=== PATIENT | male | born 1975 | race Caucasian/White ===

== ENCOUNTER 2024-02-03 16:45 | Inpatient (IN) | payer OTHER ==
[2024-02-03 17:31] VITALS: BMI 32.0
[2024-02-03] MEDS ORDERED: DICYCLOMINE HCL 10 MG CAPSULE PO PRN (17:50)
[2024-02-03] MEDS ORDERED: BENZOCAINE/MENTHOL (CHLORASEPTIC ) LOZENGE MM PRN (17:50)
[2024-02-03] MEDS ORDERED: MAG HYDROX/AL HYDROX/SIMETH 30 ML UNIT-DOSE CUP PO PRN (17:50)
[2024-02-03] MEDS ORDERED: BENZONATATE 200 MG CAPSULE PO PRN (17:50)
[2024-02-03] MEDS ORDERED: BISMUTH SUBSALICYLATE 524 MG/30 ML PO PRN (17:50)
[2024-02-03] MEDS ORDERED: ONDANSETRON *ODT* 4 MG TABLET SL PRN (17:50)
[2024-02-03] MEDS ORDERED: guaiFENesin 600 MG TABLET.ER (FP) PO PRN (17:50)
[2024-02-03] MEDS ORDERED: LOPERAMIDE HCL 2 MG CAPSULE PO PRN (17:50)
[2024-02-03] MEDS ORDERED: MAGNESIUM HYDROX 2400MG/30ML ORAL SUSPENSION 30 ML CUP PO PRN (17:50)
[2024-02-03] MEDS ORDERED: POLYETHYLENE GLYCOL (HEALTHYLAX) 3350 17 GM PACKET PO PRN (17:50)
[2024-02-03] MEDS ORDERED: ACETAMINOPHEN 325 MG TABLET (FP) PO PRN (17:50)
[2024-02-03] MEDS: IBUPROFEN 400 MG TABLET (FP) PO PRN (19:33)
[2024-02-03] MEDS: METOPROLOL TARTRATE 25 MG TABLET (FP) PO ONE ×2 (19:34)
[2024-02-03] MEDS: MELATONIN 5 MG TABLETS PO SCH (22:19)
[2024-02-03] MEDS: THIAMINE 100 MG TABLET PO SCH (22:20)
[2024-02-04] MEDS: METHOCARBAMOL 500 MG TABLET PO PRN (05:24)
[2024-02-04] MEDS: hydrOXYzine PAMOATE 25 MG CAPSULE (FP) PO PRN (05:24)
[2024-02-04] MEDS ORDERED: LORazepam 1 MG TABLET PO PRN (09:41)
[2024-02-04] MEDS: PRENATAL VITAMINS W/ FOLIC ACID TABLET (FP) PO SCH (10:16)
[2024-02-04] MEDS: LORazepam 2 MG TABLET PO SCH (10:16)
[2024-02-04 10:18] LABS: HEMATOCRIT 42.7 % (35.4-49); HEMOGLOBIN 14.3 GM/dL (11.7-16.9); MCH 32.4 pg (25.7-33.7); MCHC 33.4 g/dl (32.0-35.9); MEAN PLT VOLUME 8.7 fl (7.5-11.1); PLATELET COUNT 136 10^3/uL (134-434); RDW 14.1 % (11.9-15.9); WHITE BLOOD COUNT 7.3 K/mm3 (4.0-10.0)
[2024-02-04 10:23] LABS: POTASSIUM 4.3 mmol/L (3.5-5.1)
[2024-02-04 10:33] LABS: ALBUMIN 3.7 g/dl (3.4-5.0); BLOOD UREA NITROGEN 10.2 mg/dL (7-18); CALCIUM 8.7 mg/dL (8.5-10.1)
[2024-02-04 10:36] LABS: CREATININE 0.7 mg/dL (0.55-1.3)
[2024-02-04 10:37] LABS: BILIRUBIN,TOTAL 1.3 mg/dL (0.2-1); TOT PROT 6.8 g/dl (6.4-8.2)
[2024-02-04] MEDS: amLODIPine BESYLATE 10 MG TABLET (FP) PO SCH (11:13)
[2024-02-05] MEDS: LORazepam 1 MG TABLET PO SCH (05:49)
[2024-02-06] MEDS ORDERED: LORazepam 0.5 MG TABLET PO PRN
[2024-02-06] MEDS: LORazepam 0.5 MG TABLET PO SCH (05:32)
[2024-02-06] MEDS: IBUPROFEN 600 MG TABLET (FP) PO PRN (05:34)
[2024-02-06 09:21] VITALS: BP 140/97; PULSE 89; RESP 18; TEMP 97.5
[2024-02-07] MEDS ORDERED: LORazepam 0.5 MG TABLET PO ONE (05:00)
== END 2024-02-06 12:35 | disposition home or self-care (01) | DRG 897 ==
LOC: YASAS 16:45 → Y6N 18:08
PROVIDERS: ADMIT Allergy & Immunology; ATTEND Surgery
PROC: HZ2ZZZZ Detoxification Services for Substance Abuse Treatment (ICD-10-PCS; principal; 2024-02-03)
DX: F10.230 Alcohol dependence with withdrawal, uncomplicated (principal); I10 Essential (primary) hypertension
CPT/HCPCS: 36415; 80053; 85027; 86780; 93005; 93010